=== PATIENT | female | born 1960 | race Caucasian/White ===

== ENCOUNTER → 2016-11-11 | Outpatient (CLI) | payer BC ==
--- NOTE | 2016-11-12 07:20 | MM ---
Reason for exam: screening (asymptomatic). Last mammogram was performed 1 year and 6 months ago. History: Patient is postmenopausal and history of other cancer. Family history of breast cancer in paternal grandmother. Took hormonal contraceptives for 1 year. Physical Findings: Nurse did not find any significant physical abnormalities on exam. MG Screening Mammo w CAD Bilateral CC and MLO view(s) were taken. Prior study comparison: April 30, 2015, bilateral MG screening mammo w CAD. December 12, 2012, bilateral digital screening mammo w/CAD. There are scattered fibroglandular densities. There is chronic nodularity bilaterally. There is no discrete abnormality. ASSESSMENT: Benign, BI-RAD 2 RECOMMENDATION: Routine screening mammogram of both breasts in 1 year.
== END | disposition home or self-care (01) ==
LOC: RADMAMWWP 08:22
PROVIDERS: ATTEND Obstetrics & Gynecology
DX: Z12.31 Encounter for screening mammogram for malignant neoplasm of breast (principal); Z80.3 Family history of malignant neoplasm of breast

== ENCOUNTER → 2019-03-09 | Outpatient (CLI) | payer BC ==
--- NOTE | 2019-03-09 10:31 | MM ---
Reason for exam: screening (asymptomatic). Last mammogram was performed 2 years and 4 months ago. History: Patient is postmenopausal and history of other cancer. Family history of breast cancer in paternal grandmother. Took hormonal contraceptives for 1 year. Physical Findings: A clinical breast exam by your physician is recommended on an annual basis and results should be correlated with mammographic findings. MG Screening Mammo w CAD Bilateral CC and MLO view(s) were taken. XCCL view(s) were taken of the right breast. Prior study comparison: November 11, 2016, bilateral MG screening mammo w CAD. April 30, 2015, bilateral MG screening mammo w CAD. The breast tissue is heterogeneously dense. This may lower the sensitivity of mammography. There is no discrete abnormality. Focal asymmetry left anterior depth upper outer quadrant. This finding is changed when compared with previous exams. ASSESSMENT: Incomplete: need additional imaging evaluation, BI-RAD 0 RECOMMENDATION: Special view mammogram of the left breast. If lesion persists on supplemental views, image directed ultrasound is recommended. [facility] will attempt to contact patient to return for supplemental views and ultrasound if indicated.
== END | disposition home or self-care (01) ==
LOC: RADMAMWWP 08:38
PROVIDERS: ATTEND Obstetrics & Gynecology
DX: Z12.31 Encounter for screening mammogram for malignant neoplasm of breast (principal)
CPT/HCPCS: 77067

== ENCOUNTER → 2019-03-20 | Outpatient (CLI) | payer BC ==
--- NOTE | 2019-03-21 08:10 | MM ---
Reason for exam: additional evaluation requested from abnormal screening. Last mammogram was performed less than 1 month ago. History: Patient is postmenopausal and history of other cancer. Family history of breast cancer in paternal grandmother at age 75. Took hormonal contraceptives for 1 year. Taking estrogen for 2 years beginning at age 56. Taking other hormone for 2 years beginning at age 56. Physical Findings: Nurse did not find any significant physical abnormalities on exam. MG Work Up Mamm w CAD LT Spot compression CC, spot compression MLO, and ML view(s) were taken of the left breast. Prior study comparison: March 09, 2019, bilateral MG screening mammo w CAD. November 11, 2016, bilateral MG screening mammo w CAD. There are scattered fibroglandular densities. Persistent nodular asymmetry anterior 3 o'clock left breast. Ultrasound recommended. These results were verbally communicated with the patient and result sheet given to the patient on 03/20/19. ASSESSMENT: Incomplete: need additional imaging evaluation, BI-RAD 0 RECOMMENDATION: Ultrasound of the left breast. (1-4 o'clock)
--- NOTE | 2019-03-21 08:12 | USB ---
Reason for exam: additional evaluation requested from abnormal screening. History: Patient is postmenopausal and history of other cancer. Family history of breast cancer in paternal grandmother at age 75. Took hormonal contraceptives for 1 year. Taking estrogen for 2 years beginning at age 56. Taking other hormone for 2 years beginning at age 56. US Breast Workup Limited LT Left limited breast ultrasound including focal area of concern, retroareolar and axilla demonstrates a 1.2 x 0.6 x 1.0cm oval, echogenic, nonshadowing area at 3 o'clock corresponds well to the mammographic focal asymmetry. Scanned 1-4 o'clock. These results were verbally communicated with the patient and result sheet given to the patient on 03/20/19. ASSESSMENT: Suspicious, BI-RAD 4 RECOMMENDATION: Surgical consultation and ultrasound core biopsy of the left breast. Called Dr. Chino with mammographic findings and has scheduled an appointment for the patient for 04/20/19 at 10:[address] Salazar. Biopsy scheduled for 03/22/19 at 1:00. PRELIMINARY REPORT CALLED AND FAXED TO DR. SALAZAR ON 03/21/19.
== END | disposition home or self-care (01) ==
LOC: RADMAMWWP 13:28
PROVIDERS: ATTEND Obstetrics & Gynecology
DX: R92.8 Other abnormal and inconclusive findings on diagnostic imaging of breast (principal)
CPT/HCPCS: 77065

== ENCOUNTER → 2019-03-22 | Day surgery (SDC) | payer BC ==
[2019-03-22 12:22] VITALS: RESP 16; BMI 26.9
[2019-03-22 14:14] VITALS: BP 150/89; PULSE 61; TEMP 97.9
== END ==
LOC: RADUSWWP 11:58
PROVIDERS: ATTEND Surgery
DX: R92.8 Other abnormal and inconclusive findings on diagnostic imaging of breast (principal)
CPT/HCPCS: 76641; J2001

== ENCOUNTER → 2019-04-07 | Day surgery (SDC) | payer BC ==
[2019-04-07 09:35] VITALS: BP 152/80; PULSE 57; RESP 16; TEMP 97.8; BMI 26.9
--- NOTE | 2019-04-07 11:59 | USB ---
US Discontinued Breast Bx LT Discontinued left breast biopsy HISTORY: Abnormal mammogram Maximal barrier technique was utilized. Ultrasound was used to sterile technique. Following localization of the lesion at the 3:00 position of left breast Skin was prepped and draped. Lidocaine was used for local anesthesia a 25-gauge needle. The lesion is no longer identified. Following local anesthesia the tissues became distorted with a small hematoma. IMPRESSION: Discontinued breast biopsy. The lesion is obscured by hematoma. Short interval follow-up ultrasound could be performed in 3-6 months. Reattempt can then be performed. RECOMMENDATION: Ultrasound of the left breast in 3 months. (3-6 months)
== END | disposition home or self-care (01) ==
LOC: RADUSWWP 09:04
PROVIDERS: ATTEND Surgery
DX: R92.8 Other abnormal and inconclusive findings on diagnostic imaging of breast (principal); Z53.8 Procedure and treatment not carried out for other reasons

== ENCOUNTER → 2019-05-03 | Day surgery (SDC) | payer BC ==
[2019-05-03 13:19] VITALS: RESP 16; BMI 27.1
[2019-05-03 14:11] VITALS: BP 133/48; PULSE 66; TEMP 97.8
--- NOTE | 2019-05-03 14:27 | USB ---
EXAMINATION TYPE: US biopsy breast VAD LT, MG diagnostic mammo LT wo CAD DATE OF EXAM: 05/03/2019 CLINICAL HISTORY: R92.8 Abnormal Mammogram. TECHNIQUE: Ultrasound guided core biopsy of left breast. COMPARISON: Left breast ultrasound dated 03/20/2019 FINDINGS: The procedure of ultrasound guided core biopsy was explained to the patient. Benefits, alternatives, and risks were discussed. An informed consent was then obtained. Preprocedural timeout was performed. The patient was placed in supine positioning for imaging and for the procedure. The overlying skin was prepped and draped in usual sterile fashion. 10 cc of 1% lidocaine was used as anesthetic into the skin and subcutaneous tissue as well as 10 cc of lidocaine with epinephrine into the subcutaneous tissues up to a 1.2 cm echogenic mass in the area of the 3:00 position, likely corresponding to the mammographic focal asymmetry. Under ultrasound guidance, a 12-gauge vacuum assisted biopsy gun device was used to obtain 3 core samples. Following this, a coil-shaped biopsy marker was left at the site of biopsy. Postprocedure mammogram demonstrates the biopsy marker directly within the mammographic focal asymmetry. The patient tolerated the procedure well without any immediate complication. The patient was kept in the radiology department for short stay after the procedure and then discharged home in stable condition. IMPRESSION: Successful, uncomplicated ultrasound guided core biopsy of a hyperechoic 1.2 cm mass at the 3:00 position in the left breast (post biopsy mammogram confirms this does represent the mammographic focal asymmetry), full pathology results to follow. Pathology Results: Benign LEFT BREAST, THREE O'CLOCK, ULTRASOUND GUIDED CORE BIOPSY: Fat necrosis with fibrosis/scar, cannot exclude lipoma. Negative for malignancy Recommendation Follow up mammogram of the left breast in 6 months. VALERIED
== END ==
LOC: RADUSWWP 13:02
PROVIDERS: ATTEND Surgery
DX: N64.1 Fat necrosis of breast (principal)
CPT/HCPCS: 88305; 77065; 19083; A4648; J2001

== ENCOUNTER → 2020-02-23 | Outpatient (CLI) | payer BC ==
--- NOTE | 2020-02-26 08:47 | MM ---
Reason for exam: clinical finding. Last mammogram was performed 10 months ago. History: Patient is postmenopausal and history of other cancer. Family history of breast cancer in paternal grandmother at age 75. Benign US biopsy breast VAD LT of the left breast, May 03, 2019. US discontinued breast bx LT of the left breast, April 07, 2019. US discontinued breast bx LT of the left breast, March 22, 2019. Took hormonal contraceptives for 1 year. Taking estrogen for 2 years beginning at age 56. Taking progesterone for 2 years beginning at age 56. Taking other hormone for 2 years beginning at age 56. Physical Findings: Nurse did not find any significant physical abnormalities on exam. MG 3D Diag Mammo W/Cad GLADIS Bilateral CC and MLO view(s) were taken. Prior study comparison: May 03, 2019, left breast MG diagnostic mammo LT wo CAD. March 20, 2019, left breast MG work up mamm w CAD LT. The breast tissue is heterogeneously dense. This may lower the sensitivity of mammography. Stable benign calcifications. Previous mammotome biopsy in the left breast. No significant new findings when compared with previous films. These results were verbally communicated with the patient and result sheet given to the patient on 02/23/20. ASSESSMENT: Incomplete: need additional imaging evaluation, BI-RAD 0 RECOMMENDATION: Ultrasound of the left breast. Manage patient on a clinical basis.
--- NOTE | 2020-02-26 08:48 | USB ---
Reason for exam: additional evaluation requested from abnormal screening. History: Patient is postmenopausal and history of other cancer. Family history of breast cancer in paternal grandmother at age 75. Benign US biopsy breast VAD LT of the left breast, May 03, 2019. US discontinued breast bx LT of the left breast, April 07, 2019. US discontinued breast bx LT of the left breast, March 22, 2019. Took hormonal contraceptives for 1 year. Taking estrogen for 2 years beginning at age 56. Taking progesterone for 2 years beginning at age 56. Taking other hormone for 2 years beginning at age 56. US Breast LT Left complete breast ultrasound includes all four quadrants, the retroareolar region and axilla. Finding demonstrates a 0.9 x 0.7cm oval, hyperechoic lesion at 3 o'clock, possible lipoma, area of prior biopsy. These results were verbally communicated with the patient and result sheet given to the patient on 02/23/20. ASSESSMENT: Benign, BI-RAD 2 RECOMMENDATION: Return to routine screening mammogram schedule for both breasts. Manage patient on a clinical basis.
== END | disposition home or self-care (01) ==
LOC: RADMAMWWP 13:03
PROVIDERS: ATTEND Obstetrics & Gynecology
DX: N60.02 Solitary cyst of left breast (principal); N60.01 Solitary cyst of right breast; R92.8 Other abnormal and inconclusive findings on diagnostic imaging of breast
CPT/HCPCS: 77062; 77066

== ENCOUNTER → 2022-01-12 | Outpatient (CLI) | payer BC ==
--- NOTE | 2022-01-13 11:32 | MM ---
Reason for Exam: Screening (asymptomatic). Last mammogram was performed 1 year(s) and 11 month(s) ago. Patient History: Menarche at age 15. First Full-Term at age 30. Late child-bearing (after 30). Postmenopausal. Other cancer. Currently using Estrogen, beginning at age 56 for 2 years. Currently using Progesterone, beginning at age 56 for 2 years. Patient used Hormonal Contraceptives for 1 year. 05/03/2019, Benign Core Biopsy on the left side. 04/07/2019, US discontinued breast bx LT on the left side. 03/22/2019, US discontinued breast bx LT on the left side. Paternal grandmother had breast cancer, age 75. Risk Values: Barbara 5 year model risk: 2.2%. NCI Lifetime model risk: 10.4%. Prior Study Comparison: 03/20/2019 Left Diagnostic Mammogram, [facility]. 05/03/2019 Left Diagnostic Mammogram, [facility]. 02/23/2020 Bilateral Diagnostic Mammogram, [facility]. Tissue Density: The breast tissue is heterogeneously dense. This may lower the sensitivity of mammography. Findings: Analyzed By CAD. There is no suspicious group of microcalcifications or new suspicious mass in either breast. Chronic nodularity seen on the right. Asymmetric densities bilaterally are stable. Benign calcifications noted. Previous biopsy clip noted on the left. Overall Assessment: Benign, BI-RAD 2 Management: Screening Mammogram of both breasts in 1 year. A clinical breast exam by your physician is recommended on an annual basis and results should be correlated with mammographic findings. Electronically signed and approved by: Baldev Estrada M.D. Radiologis
== END | disposition home or self-care (01) ==
LOC: RADMAMWWP 11:18
PROVIDERS: ATTEND Obstetrics & Gynecology
DX: Z12.31 Encounter for screening mammogram for malignant neoplasm of breast (principal); Z78.0 Asymptomatic menopausal state; Z80.3 Family history of malignant neoplasm of breast
CPT/HCPCS: 77063; 77067

== ENCOUNTER 2022-12-23 09:30 | Day surgery (SDC) | payer BC ==
[2022-12-21 15:46] VITALS: BMI 29.9
[~2022-12-23 09:30] MED LIST: LACTATED RINGERS 1,000 ML IV SCH; LIDOCAINE 1% (10MG/ML) FOR IV START INTRADERMA PRN
[2022-12-23] MEDS ORDERED: ONDANSETRON 4 MG/2 ML VIAL ONE (10:55)
[2022-12-23 11:01] VITALS: RESP 16; TEMP 97.4
[2022-12-23] MEDS ORDERED: PROPOFOL 10 MG/ML 20 ML VIAL IV ONE (11:42)
--- NOTE | 2022-12-23 11:57 | P.PCN ---
Date of Procedure: 12/23/22 Procedure(s) Performed: BRIEF HISTORY: Patient is a 62-year-old pleasant white female scheduled for an elective colonoscopy as a part of screening for colorectal neoplasia. PROCEDURE PERFORMED: Colonoscopy. PREOPERATIVE DIAGNOSIS: Screening for colon cancer. IV sedation per Anesthesia. PROCEDURE: After informed consent was obtained, the patient, was brought into the endoscopy unit. IV sedation was administered by Anesthesia under continuous monitoring. Digital rectal examination was normal. Initially the Olympus CF-160 flexible video colonoscope was then inserted in the rectum, gradually advanced into the cecum without any difficulty. Careful examination was performed as the scope was gradually being withdrawn. Ileocecal valve and the appendiceal orifice were visualized and appeared normal. Prep was excellent. Mucosa of the cecum, ascending colon, transverse colon, descending colon, sigmoid colon, and rectum appeared normal. Retroflexion was performed in the rectum and no lesions were seen. The patient tolerated the procedure well. IMPRESSION: Normal-appearing colon from rectum to cecum with no evidence of colorectal neoplasia. RECOMMENDATIONS: Findings of this examination were discussed with the patient as well as her family. She was advised to have a repeat screening colonoscopy in 10 years..
[2022-12-23 12:36] VITALS: BP 145/73; PULSE 65
== END 2022-12-23 12:37 | disposition home or self-care (01) ==
LOC: ORWHC2ENDO 09:30
PROVIDERS: ATTEND Internal Medicine Gastroenterology
DX: Z12.11 Encounter for screening for malignant neoplasm of colon (principal); I10 Essential (primary) hypertension; E78.5 Hyperlipidemia, unspecified; Z88.0 Allergy status to penicillin; Z79.82 Long term (current) use of aspirin; Z91.040 Latex allergy status; Z79.899 Other long term (current) drug therapy
CPT/HCPCS: 45378; J2405; J2704

== ENCOUNTER → 2024-04-18 | Outpatient (CLI) | payer BC ==
--- NOTE | 2024-04-20 10:33 | MM ---
Reason for Exam: Screening (asymptomatic). Last mammogram was performed 2 year(s) and 3 month(s) ago. Patient History: Menarche at age 15. First Full-Term at age 30. Late child-bearing (after 30). Postmenopausal. Other cancer. Currently using Estrogen, beginning at age 56 for 2 years. Currently using Progesterone, beginning at age 56 for 2 years. Patient used Hormonal Contraceptives for 1 year. 05/03/2019, Benign Core Biopsy on the left side. 04/07/2019, US discontinued breast bx LT on the left side. 03/22/2019, US discontinued breast bx LT on the left side. Paternal grandmother had breast cancer, age 75. Risk Values: Barbara 5 year model risk: 2.3%. NCI Lifetime model risk: 9.8%. Prior Study Comparison: 05/03/2019 Left Diagnostic Mammogram, [facility]. 02/23/2020 Bilateral Diagnostic Mammogram, [facility]. 01/12/2022 Bilateral MG 3D screening mammo w/cad, [facility]. Tissue Density: There are scattered areas of fibroglandular density. Findings: Analyzed By CAD. There is no suspicious group of microcalcifications or new suspicious mass in either breast. Overall Assessment: Negative, BI-RAD 1 Management: Screening Mammogram of both breasts in 1 year. . Patient should continue monthly self-breast exams. A clinical breast exam by your physician is recommended on an annual basis. This exam should not preclude additional follow-up of suspicious palpable abnormalities. Note on Barbara scores and lifetime risk: 1. A Barbara score greater than 3% is considered moderate risk. If this is the case, consider specialist referral to assess eligibility for a risk reducing agent. 2. If overall lifetime risk for the development of breast cancer is 20% or higher, the patient may qualify for future screening with alternating mammogram and breast MRI. [facility], , 04/20/2024 10:30 AM. Electronically signed and approved by: Marcos Vogel M.D. Radiologis
== END | disposition home or self-care (01) ==
LOC: RADMAMWWP 13:02
PROVIDERS: ATTEND Family Medicine
CPT/HCPCS: 77063; 77067